=== PATIENT | female | born 2000 | race Caucasian/White ===

== ENCOUNTER → 2022-08-17 | Emergency (ER) | payer MEDICAID ==
[~2022-08-17] VITALS: Ht 162.6 cm; Wt 61.0 kg
[2022-08-17 12:38] LABS: BASOPHILS % 0.7 % (0.0-2.0); EOSINOPHILS % 5.3 % (0.0-5.0); HEMATOCRIT. 31.8 % (36.0-48.0); HEMOGLOBIN. 10.5 g/dL (12.0-16.0); LYMPHOCYTES % 22.2 % (20.0-50.0); MEAN CORPUSCULAR HEMOGLOBIN 29.7 pg (28.0-32.0); MEAN CORPUSCULAR VOLUME 90.2 fL (81.0-99.0); MEAN PLATELET VOLUME 8.3 fl (7.4-10.4); MONOCYTES % 10.2 % (2.0-8.0); NEUTROPHILS % 61.6 % (40.0-76.0); PLATELET 133 x1000/uL (130-400); RED BLOOD CELL COUNT 3.53 mill/uL (4.2-5.4); RED CELL DISTRIBUTION WIDTH 13.6 % (11.6-14.6)
[2022-08-17 12:44] LABS: CHLORIDE 110 mEq/L (98-107)
[2022-08-17 12:58] LABS: HCG SCREEN NEGATIVE
[2022-08-17 17:15] VITALS: BP 115/69
== END ==
LOC: ER 11:02 → EDBEDREQ 13:29 → MICUSO 16:23 → UNDOADMIN 16:23 → EDBEDREQTM 16:25 → EDBEDREQ 16:25 → UNDODISIN 17:30
DX: N19 Unspecified kidney failure (principal); I50.9 Heart failure, unspecified; Z53.29 Procedure and treatment not carried out because of patient's decision for other reasons; Z88.8 Allergy status to other drugs, medicaments and biological substances; Z95.0 Presence of cardiac pacemaker; Z88.3 Allergy status to other anti-infective agents
CPT/HCPCS: 36415; 71045; 80053; 83880; 84443; 84484; 84703; 85025; 93005; 99285